=== PATIENT | male | born 1995 | race Caucasian/White ===

== ENCOUNTER 2020-05-17 20:48 | Emergency (ER) | payer MEDICAID ==
[~2020-05-17] VITALS: Ht 180.3 cm; Wt 73.9 kg
[~2020-05-17 20:48] MED LIST: CLIN300C2 PO
[2020-05-17 20:52] VITALS: BP 117/77
--- NOTE | 2020-05-17 20:52 | NUR ---
TO BED AMBULATORY
--- NOTE | 2020-05-17 21:14 | NUR ---
24 y/o male presented to ED c/o sudden itchy / throbbing pain on back of left thigh starting last night. Observed circular redness & swelling , approx 4 X 3 in size noted on back of left thigh. Pt c/o of pain upon palpation of redness. Pt denies fever, body aches, and chills. Pt denies any trauma or drug use. ERMD at bedside for medical evaluation. Pt resting in prone position, vss. no acute distress noted. pmh: denies NKA
--- NOTE | 2020-05-17 21:18 | NUR ---
ERMD at bedside for ultrasound of affected area.
[2020-05-17] MEDS ORDERED: LIDOCAINE MPF 1% 10 MG/ML VIAL INJ ONE (21:25)
--- NOTE | 2020-05-17 21:47 | NUR ---
ERMD at bedside for further evaluation.
[2020-05-17] MEDS ORDERED: SULF-59 PO (21:55)
[2020-05-17] MEDS ORDERED: CEPH500T PO (21:55)
[2020-05-17] MEDS ORDERED: IBUP-2213 PO (21:56)
[2020-05-17 22:15] VITALS: BP 117/77
--- NOTE | 2020-05-17 22:15 | NUR ---
Patient discharged with v/s stable. Written and verbal after care instructions given and explained. Patient alert, oriented and verbalized understanding of instructions. Ambulatory with steady gait. All questions addressed prior to discharge. ID band removed. Patient advised to follow up with PMD. Rx of cephalexin , ibuprofen & bactrim given. Patient educated on indication of medication including possible reaction and side effects. Opportunity to ask questions provided and answered.
== END 2020-05-17 22:15 | disposition home or self-care (01) ==
LOC: MED 20:48
DX: L02.416 Cutaneous abscess of left lower limb (principal)
CPT/HCPCS: 10060; 99284; J2001